=== PATIENT | female | born 1985 | race Caucasian/White ===

== ENCOUNTER 2024-11-24 23:54 | Emergency (ER) | payer MEDICAID ==
[~2024-11-24] VITALS: Ht 170.2 cm; Wt 87.9 kg
[2024-11-24 23:57] VITALS: O2SAT 97
[2024-11-25 00:02] VITALS: BP 157/103; PULSE 83; RESP 16; TEMP 36.8; O2SAT 98
[2024-11-25 00:46] LABS: BASOPHILS % 0.6 % (0.0-2.0); EOSINOPHILS % 2.0 % (0.0-5.0); HEMATOCRIT. 39.0 % (36.0-48.0); HEMOGLOBIN. 13.3 g/dL (12.0-16.0); LYMPHOCYTES % 28.5 % (20.0-50.0); MEAN PLATELET VOLUME 9.0 fl (7.4-10.4); MONOCYTES % 5.7 % (2.0-8.0); NEUTROPHILS % 63.2 % (40.0-76.0); PLATELET 278 x1000/uL (130-400); RED BLOOD CELL COUNT 4.48 mill/uL (4.2-5.4); RED CELL DISTRIBUTION WIDTH 13.9 % (11.6-14.6)
[2024-11-25 00:54] LABS: CREATININE 0.8 mg/dL (0.6-1.0); UREA NITROGEN BLOOD 11 mg/dL (9-23)
[2024-11-25 01:20] LABS: CLARITY URINE CLOUDY (CLEAR); COLOR URINE YELLOW (YELLOW); GLUCOSE URINE NEGATIVE (NEGATIVE); KETONES URINE NEGATIVE (NEGATIVE); LEUKOCYTE ESTERASE URINE NEGATIVE (NEGATIVE); NITRITE URINE NEGATIVE (NEGATIVE); OCCULT BLOOD URINE 1+ (NEGATIVE); PH URINE 7.0 (4.5-8.0); PROTEIN URINE NEGATIVE (NEGATIVE); SPECIFIC GRAVITY URINE 1.018 (1.005-1.030); UROBILINOGEN URINE 0.2 E.U./dL (0.2-1.0)
[2024-11-25] MEDS ORDERED: AMLO2.5T45 MT (01:21)
[2024-11-25] MEDS: METOCLOPRAMIDE HCL 10MG TABLET PO ONE (01:23)
[2024-11-25] MEDS: MECLIZINE 25MG TABLET PO ONE (01:23)
[2024-11-25] MEDS: AMLODIPINE 2.5MG TABLET PO ONE (01:24)
[2024-11-25] MEDS: ACETAMINOPHEN 500MG TABLET PO ONE (01:24)
[2024-11-25 01:29] LABS: BACTERIA URINE 1+; SQUAMOUS EPITHELIAL CELL URINE FEW /lpf (RARE/1+); WBC URINE 0-2 /hpf (0-2)
== END 2024-11-25 04:40 | disposition left against medical advice (07) ==
LOC: EDSEX 23:54 → ER 23:54 → CMPBEDREQ 11-25 08:02
DX: I10 Essential (primary) hypertension (principal); Z98.890 Other specified postprocedural states
CPT/HCPCS: 99284; 80048; 81003; 85025; 36415; J8597 ×2